=== PATIENT | male | born 1945 | race Caucasian/White ===

== ENCOUNTER → 2023-11-16 14:49 | Outpatient (REF) | payer MEDICARE, OTHER, SELFPAY | LOC: RCS 14:49 | PROVIDERS: ATTENDING PHYSICIAN Internal Medicine Interventional Cardiology; FAMILY PHYSICIAN Family Medicine | DX: I48.0 Paroxysmal atrial fibrillation (principal); R06.09 Other forms of dyspnea; I34.0 Nonrheumatic mitral (valve) insufficiency | CPT/HCPCS: 93306 ==

== ENCOUNTER → 2024-03-21 13:30 | Outpatient (REF) | payer MEDICARE, OTHER, SELFPAY | LOC: RCS 13:30 | PROVIDERS: ATTENDING PHYSICIAN Internal Medicine Interventional Cardiology; FAMILY PHYSICIAN Family Medicine | DX: I10 Essential (primary) hypertension (principal); I95.1 Orthostatic hypotension | CPT/HCPCS: 93306 ==

== ENCOUNTER 2024-08-09 14:08 | Emergency (ER) | payer MEDICARE, OTHER, SELFPAY ==
[2024-08-09 14:14] VITALS: BP 146/71
--- NOTE | 2024-08-09 14:35 | ED.GENMED ---
History of Present Illness
General
Chief Complaint: Fatigue
Source: patient
Exam Limitations: none
Time Seen by Provider: 08/09/24 14:32
Nursing documentation reviewed up to this point in time: agreed with
History of Present Illness
History of Present Illness:
The patient is a 78-year-old male with history atrial fibrillation on Eliquis, CAD, hypertension, hyperlipidemia, diabetes with pacemaker who presents to the emergency department with 4 days of shortness of breath, lightheadedness, and fatigue. He
reports increased shortness of breath and fatigue, primarily upon exertion, such as walking down the [place], though recovery is quick. He denies chest pain, fever, chills, cough, headaches, vision changes, dizziness/spinning, or recent viral
infections. He reports a feeling riya to lightheadedness. He also reports significant levels of fatigue and states he feels extremely 'exhausted '. He denies any urinary symptoms or changes in bowel habits including dark or bloody stools.
Two weeks ago, he traveled by airplane to [place] and was functioning well during the trip.
Past History
Past History
ED Past Medical History: Arrthythmia, CAD, HTN, Hypercholesterolemia and NIDDM
ED Past Surgical History: Cardiac and Orthopedic
Social History
Tobacco: Non-smoker
Alcohol: None
Drug: None
Personal:
Living: with family
Review of Systems
Review of Systems
Allergies reviewed?: Yes
All Other Systems: ROS reviewed and negative except as documented in HPI and ROS
Phy Exam
Physical Exam
Physical Exam:
Vitals: Mildly hypertensive, otherwise vital signs stable.
General: Patient is well appearing, no acute distress
Skin: Warm and dry, no rashes or lesions
Head: Normocephalic, atraumatic
Eyes: Sclera nonicteric.
Throat: Protecting airway
Neck: Normal ROM, no cervical spine tenderness, no meningismus
Cardiac: Regular rate and rhythm, no murmurs.
Pulm: Normal respiratory effort, no wheezes, rales, rhonchi heard on exam
.
Abdomen: Abdomen soft and nontender
Extremities: No evidence of cyanosis or edema. Strength 5/5 in bilateral upper and lower extremities.
Neuro: AAOx3. Grossly intact.
Psychiatric: Normal affect.
Course
Orders/Labs/Results
Orders:
Orders
08/09/24 14:43
Complete Blood Count/With Diff Urgent
Comprehensive Metabolic Panel Urgent
Lyme Progressive Urgent
Comment: ADD ON
NT-proBNP Urgent
TSH Reflex To Free T4 Urgent
Comment: ADD ON
Troponin I Urgent
08/09/24 14:57
Electrocardiogram (*1) Urgent
Reason for Study: Fatigue / Weakness
EKG- Treatment ONCE
pacemaker [Interrogate Pacemaker- Treatment] ONCE
Comment: Biotronik
CR Chest - 2 Views Urgent
Comment:
Reason For Exam: SOB
08/09/24 15:04
COVID-19 Antigen Urgent
Source: Nasal Swab
D-Dimer Urgent
Influenza A+B Rapid Molecular Urgent
[facility] Source: Nasal Swab
Specimen Description:
08/09/24 16:09
Urinalysis Reflex To Culture Urgent
Date Specimen was Collected: 08/09/24
Time Specimen was Collected: 15:59
08/09/24 18:20
Add On- LAB Urgent
Tests Added?: lyme progressive, TSH w/ reflex to T4
Abnormal Lab Results
08/09/24 08/09/24
14:43 16:09
Plt Count 85 L 10^3/uL
(130-400)
MPV 10.9 H fL
(7.4-10.4)
Absolute Lymphs (auto) 0.9 L 10^3/uL
(1.2-3.4)
Lymphocytes % 15.6 L %
(20.5-51.1)
Chloride 109 H mmol/L
(98-107)
Glucose 108 H mg/dl
(70-99)
Total Bilirubin 1.5 H mg/dl
(0.2-1.3)
Urine Glucose 4+ A
(Negative)
08/09/24 14:43
08/09/24 14:43
Vital Signs
Initial and Last Documented VS:
Initial Vital Signs
Temp Pulse Resp BP Pulse Ox
98.1 F 69 20 146/71 98
08/09/24 14:14 08/09/24 14:14 08/09/24 14:14 08/09/24 14:14 08/09/24 14:14
Last Documented Vital Signs
Temp Pulse Resp BP Pulse Ox
98.1 F 65 16 141/78 97
08/09/24 14:14 08/09/24 17:59 08/09/24 17:59 08/09/24 17:59 08/09/24 17:59
MDM/Problems Addressed
Differential Diagnosis Includes:
Not limited to: anemia, viral illness, congestive heart failure, tick borne illness, acute dehydration, hypothyroid
MDM/Problems Addressed:
78-year-old male with 4 days of significant fatigue, exertional dyspnea, and mild lightheadedness. No associated fever, chest pain, etc. Patient arrives with stable vital signs, he is afebrile. Patient well appearing, in no apparent respiratory
distress on exam. Physical exam unremarkable.
Presenting symptoms very vague with broad differential. ED plan: check labs, UA, cardiac enzymes, viral studies, CXR, interrogate pacemaker.
Labs reviewed significant for thrombocytopenia. While patient seems to have a hx of this - plt count lower than baseline today. Chemistry unremarkable. Cardiac enzymes, d-dimer, CXR, UA without acute abnormalities. Pacemaker interrogated without
evidence of recent events. No acute issues identified in the emergency department. Patient remains well and comfortable appearing. He is nontoxic.
Thrombocytopenia noted along with leukopenia and some abnormal RBC morphology which was discussed with patient; potential viral or hematologic etiology. Ultimately feel stable for discharge home. Advise rest and hydration. Repeat lab work with
primary care and consider hematology evaluation if thrombocytopenia persists. Strict return precautions discussed.
Chronic conditions affecting care:
HTN
Acute Exacerbation and/or Progression of Chronic Illness:
Acutely hypertensive
*Radiology
Radiology exam reviewed: preliminary read by ED provider and radiology read reviewed
*Pulse Oximetry
SaO2: 98
Oxygen Mode of Delivery: Room air
Patient hypoxic: no
*EKG
Interpreted by ED Provider?: Yes
EKG Intrepretation Date: 08/09/24
Interpretation: abnormal
Comparison EKG: changes noted
Heart Rate: 69
Rate: normal
Rhythm: ventricular paced
*Music Coordinator Interpretation
Rate: normal
Interpretation: normal
Heart Rate: 66
Rhythm: ventricular paced
*Critical Care Note
Total Time (30-74mins, 75-104mins- exclusive of procedures): Not Applicable
Data Reviewed
Review of Other/Old Records Reveals: Operative Reports (Cardiac catheterization report from 10/26/2022 which showed severe [place] coronary artery disease) and Testing (I reviewed cardiac echo report from 03/21/2024 which revealed EF of 50% with mild to
moderate aortic regurgitation, mild tricuspid regurgitation, and aortic root dilatation)
Patient Management
Escalation/DeEscalation of care consider admission/obs:
Admit not indicated
ED Attending Note
-
Portions of this chart may have been created with voice recognition software.� Occasional wrong word or��sound alike� substitutions may have occurred due to the inherent limitations of voice recognition software.
Discharge Plan
Departure
Patient Disposition: Home (Routine Discharge)
Date of Disposition: 08/09/24
Time of Disposition: 18:17
Patient with high blood pressure during this ER visit?: Yes
Discharge Problem:
Fatigue, Dyspnea
Instructions: Fatigue (DC), Shortness of breath in adults - ED discharge instructions, BLOOD PRESSURE
Prescriptions:
No Action
atorvastatin 20 mg Tablet
20 mg PO DAILY
sertraline 100 mg Tablet
200 mg PO DAILY
aspirin 81 mg Tablet,Delayed Release (Dr/Ec)
81 mg PO DAILY
nitroglycerin 0.4 mg Tablet, Sublingual
0.4 mg SUBLINGUAL Q5M PRN (Reason: CHEST PAIN)
Rx Instructions:
not taken in years
midodrine 2.5 mg Tablet
2.5 mg PO DAILY
Farxiga 10 mg Tablet
10 mg PO DAILY
Eliquis 5 mg tablet
5 mg PO BID Qty: 180 5RF
metoprolol succinate 25 mg tablet extended release 24 hr
25 mg PO BID
Referrals:
Karlos Soriano MD [Family Provider, Family Practice] - Follow up in 2-3 days
Activity Restrictions/Additional Instructions:
RETURN TO THE EMERGENCY DEPARTMENT ANY FEVERS, CHILLS, CHEST PAIN, WORSENING SHORTNESS OF BREATH/DIFFICULTY BREATHING, WORSENING IN CURRENT SYMPTOMS, OR ANY OTHER CONCERNS
- As discussed�your lab work revealed a low platelet count and some abnormal morphology of your red blood cells. Please follow-up with your primary care next week as you may require further evaluation by fourth officer.
- We have sent additional lab work to test for Lyme's and your thyroid level. Will contact you if these are out of range or positive.
- Please stay well-hydrated and get plenty of rest over the next few days.
- Follow-up your primary care on Monday for further evaluation/management
Monitor your symptoms closely and return to the emergency department with any acute worsening/new symptoms or any other concerns
Interventions
Interventions:
*Risk Screen - Suicide Last Done: 08/09/24 14:14
*General Assessment Last Done: 08/09/24 15:06
*Neglect/Abuse Screening Last Done: 08/09/24 14:14
*ED- Fall Risk Assessment Last Done: 08/09/24 15:06
*ED COVID-19 Vaccine History Last Done: 08/09/24 15:06
*Nursing Disposition Last Done: 08/09/24 18:23
Discharge Date and Time
Discharge Date/Time: 08/09/24 18:24
Print Language: IRISH
[2024-08-09 14:58] LABS: Hematocrit 46.2 % (39.0-52.0); Hemoglobin 15.5 g/dL (13.0-18.0); Mean Corp Hgb Conc. 33.5 g/dL (33.0-37.0); Mean Corpuscular Hgb 27.9 pg (27.0-31.0); Mean Corpuscular Volume 83.2 fL (80.0-94.0); Mean Platelet Volume 10.9 fL (7.4-10.4); Platelet Count 85 10^3/uL (130-400); Red Blood Cell Count 5.55 10^6/uL (4.70-6.10); Red Cell Dist. Width 13.7 % (11.5-14.5); White Blood Cell Count 5.8 10^3/uL (4.8-10.8)
[2024-08-09 15:06] VITALS: BP 143/91; BMI 25.7
[2024-08-09 15:17] LABS: ALT (SGPT) 36 U/L (0-50); AST (SGOT) 35 U/L (17-59); Albumin 4.7 g/dl (3.5-5.0); Alkaline Phosphatase 63 U/L (38-126); Blood Urea Nitrogen 12 mg/dl (9-20); Calcium 9.3 mg/dl (8.4-10.2); Carbon Dioxide 24 mmol/L (22-30); Chloride 109 mmol/L (98-107); Estimated Creatinine Clearance 77 ml/min; Glucose 108 mg/dl (70-99); Potassium 4.2 mmol/L (3.5-5.1); Sodium 140 mmol/L (135-145); Total Bilirubin 1.5 mg/dl (0.2-1.3); Total Protein 6.6 g/dl (6.3-8.2); eGFR > 60.00
[2024-08-09 15:21] LABS: % Eosinophils 1.7 % (0-6); % Immature Granulocytes 0.3 % (0-0.5); % Lymphocytes 15.6 % (20.5-51.1); % Monocytes 6.2 % (1.7-9.3); % Neutrophils 75.2 % (42.2-75.2); Absolute Basophils 0.1 10^3/uL (0-0.2); Absolute Eosinophils 0.1 10^3/uL (0-0.7); Absolute Lymphocytes 0.9 10^3/uL (1.2-3.4); Absolute Monocytes 0.4 10^3/uL (0.1-0.6); Absolute Neutrophils 4.3 10^3/uL (1.4-6.5); Nucleated Red Blood Cells % 0 % (-)
[2024-08-09 15:23] LABS: Normal RBC Morphology No
[2024-08-09 15:25] LABS: Anisocytosis 2+; Hypochromasia 1+; Macrocytosis 1+; Poikilocytosis 1+
[2024-08-09 15:27] LABS: COVID-19 Antigen Negative (Negative)
[2024-08-09 15:28] LABS: NT-proBNP 385 pg/ml; Troponin I < 0.012 ng/ml
[2024-08-09 15:40] LABS: D-Dimer < 0.27 ug/mlFEU (0.00-0.50)
[2024-08-09 16:26] LABS: Urine Albumin Negative (Neg - Trace); Urine Bilirubin Negative (Negative); Urine Character Clear (Clear); Urine Color Yellow; Urine Glucose 4+ (Negative); Urine Ketone Negative (Negative); Urine Leukocyte Negative (Negative); Urine Nitrite Negative (Negative); Urine Occult Blood Negative (Negative); Urine Urobilinogen Negative (Neg - 1+)
[2024-08-09 16:55] VITALS: BP 143/84
[2024-08-09 17:59] VITALS: BP 141/78
[2024-08-09 19:45] LABS: TSH Reflex To Free T4 1.44 uIU/ml (0.47-4.68)
[2024-08-12 13:43] LABS: Lyme Antibody Screen, EIA Negative (Negative)
== END 2024-08-09 18:24 | disposition home or self-care (01) ==
LOC: EMR 14:08
PROVIDERS: Physician Assistant; EMERGENCY PHYSICIAN Emergency Medicine; FAMILY PHYSICIAN Family Medicine
DX: R53.83 Other fatigue (principal); R06.09 Other forms of dyspnea; I10 Essential (primary) hypertension; I25.10 Atherosclerotic heart disease of native coronary artery without angina pectoris; E78.00 Pure hypercholesterolemia, unspecified; Z11.52 Encounter for screening for COVID-19; D69.6 Thrombocytopenia, unspecified; E11.9 Type 2 diabetes mellitus without complications; Z95.0 Presence of cardiac pacemaker; I48.91 Unspecified atrial fibrillation; Z79.01 Long term (current) use of anticoagulants
CPT/HCPCS: 99285; 71046; 80053; 81003; 83880; 84443; 84484; 85025; 85379; 86618; 87502; 87811; 93005